=== PATIENT | female | born 2005 | race Caucasian/White ===

== ENCOUNTER 2023-12-13 16:52 | Inpatient (IN) | payer OTHER, SELFPAY ==
[2023-12-13] VITALS (14 sets, daily range): BP systolic 98–135; BP diastolic 50–83; PULSE 67–94; TEMP 36.8
[2023-12-13] MEDS: DINOPROSTONE 10 MG VAG INSERT.ER VAGINAL (18:24)
[2023-12-13 18:46] LABS: Hematocrit 34.1 % (36.0-48.0); Hemoglobin 11.3 g/dL (12.0-16.0); Mean Corpuscular HGB Conc 33.1 g/dL (29.9-35.2); Mean Corpuscular Hemoglobin 28.2 pg (26.7-34.0); Platelet Count 194 10^3/uL (150-450); Red Blood Count 4.01 10^6/uL (4.20-5.40); Red Cell Distribution Width 13.4 % (11.0-15.0); White Blood Count 13.7 10^3/uL (4.0-11.0)
[2023-12-13 19:00] LABS: Amphetamine Screen Urine NEGATIVE (NEGATIVE); Barbiturates Screen Urine NEGATIVE (NEGATIVE); Benzodiazepines Screen Urine NEGATIVE (NEGATIVE); Buprenorphine Screen Urine NEGATIVE (NEGATIVE); Cannabinoid Screen Urine NEGATIVE (NEGATIVE); Cocaine Screen Urine NEGATIVE (NEGATIVE); Methadone Screen Urine NEGATIVE (NEGATIVE); Methamphetamines Screen Urine NEGATIVE (NEGATIVE); Opiate Screen Urine NEGATIVE (NEGATIVE); Oxycodone Screen Urine NEGATIVE (NEGATIVE); Phencyclidine Screen Urine NEGATIVE (NEGATIVE); Tricyclic Antidepressant Urine NEGATIVE (NEGATIVE)
[2023-12-14] VITALS (52 sets, daily range): BP systolic 98–223; BP diastolic 50–121; PULSE 68–129; TEMP 36.6–37.1
--- NOTE | 2023-12-14 08:29 | PM.OBHP ---
OB - H&P: HPI History of Present Illness Chief complaint: PARTNERS, INDUCTION : 1 Para: 0 Gestational age based on last menstrual period: 40.5 History of Present Dating criteria: LMP confirmed by 1st trimester US Ultrasounds: normal 1st trimester US Medical complications OB: none Labs Blood type: B (+) positive Rubella: immune RPR/VDLR: nonreactive GBS status: negative HBsAG: negative Review of Systems ROS Status of ROS: 10 or more systems reviewed and unremarkable except as noted in history and below Meds Home Medications and Allergies Allergies Allergy/AdvReac Type Severity Reaction Status Date / Time No Known Drug Allergies Allergy Verified 12/14/23 05:45 Exam Constitutional Vital Signs, click to edit/add: Last Vital Signs Temp 98.3 F 12/13/23 17:10 Pulse 83 12/14/23 08:20 Resp 16 12/13/23 17:10 BP 136/88 12/14/23 08:20 Common normals: no apparent distress and oriented x3 General appearance: cooperative Orientation/consciousness: Yes awake, Yes oriented to person, Yes oriented to place and Yes oriented to time HENMT Common normals: normocephalic Eye Common normals: EOMs intact bilaterally Neck & C-Spine Common normals: full ROM General: normal visual inspection Lymph Lymphatic: no lymphadenopathy noted Chest Common normals: inspection of chest normal Respiratory Common normals: normal respiratory effort, no retractions, no use of accessory muscles, clear to auscultation bilaterally and percussion normal Effort & inspection: able to speak in complete sentences Auscultation: clear to auscultation bilaterally Cardio Common normals: regular rate and regular rhythm Rate: regular rate Rhythm: regular rhythm GI Common normals: Normal to inspection, nondistended, normoactive bowel sounds present, soft to palpation and non-tender Palpation: soft Common normals: no CVA tenderness Back & Pelvis Common normals: no CVA tenderness Extremity Common normals: normal to inspection Neuro Common normals: oriented x3 Sensorium/orientation: awake, alert, oriented to person, oriented to place and oriented to time Psych Common normals: mental status grossly normal, thought process normal, cooperative, affect normal, speech normal, activity/motor behavior normal, denies hallucinations, denies homicidal ideation and denies suicidal ideation Appearance: grossly normal Attitude: calm Results Labs Labs: Short CBC 12/13/23 Range/Units 17:31 WBC 13.7 H (4.0-11.0) 10^3/uL Hgb 11.3 L (12.0-16.0) g/dL Hct 34.1 L (36.0-48.0) % Plt Count 194 (150-450) 10^3/uL OB - A/P Assessment and Plan (1) Term : Plan admit for labor and delivery. patient is 40 weeks 5 days
--- NOTE | 2023-12-14 08:39 | PM.EN ---
Event Note Event Note: 0815 assessment obtained. SVE performed and she is 3+/60/-1. AROM performed with sterile finger cot with return of moderate amount of clear, odorless fluid. heart tones are stable before, during and after rupture of membranes. Patient tolerated procedure well.
[2023-12-14] MEDS: LACTATED RINGER'S SOLUTION 1,000 ML 999 ML IV (11:55)
[2023-12-14] MEDS: ROPIVACAINE HCL/PF 400 MG/200 ML PREMIX 8 MG EPIDURAL (11:56)
[2023-12-14] MEDS: OXYTOCIN/0.9 % SODIUM CHLORIDE 20 UNITS/1,000 ML PLAST..BAG 125 UNIT IV (14:45)
--- NOTE | 2023-12-14 15:18 | PM.OBPRCVD ---
Procedure Intrapartal events: None Induction method: other (cervidil ) Delivery augmentation: rupture of membranes and pitocin Delivery monitor: external FHT and external uterine Route of delivery: Episiotomy Description: none L&D Laceration Description: periurethral - 2nd degree Delivery repair: Vicryl Estimated blood loss (mL): 300 Anesthesia type: Epidural Disposition: no change Delivery date: 12/14/23 Gender: male presentation: vertex cord description: 3 Vessels and Around Body x2 heart rate - 1 minute: 100 bpm or Greater respiratory effort - 1 minute: Spontaneous/Strong Cry muscle tone - 1 minute: Active Movement reflex response - 1 minute: Prompt Response color - 1 minute: Bluish Hands or Feet total score - 1 minute: 9 heart rate - 5 minute: 100 bpm or Greater respiratory effort - 5 minute: Spontaneous/Strong Cry muscle tone - 5 minute: Active Movement reflex response - 5 minute: Prompt Response color - 5 minute: Bluish Hands or Feet total score - 5 minute: 9
[2023-12-14] MEDS: BENZOCAINE/MENTHOL 85 GRAM SPRAY BOTTLE 1 APPLIC TOPICAL (15:46)
[2023-12-14] MEDS: IBUPROFEN 400 MG TABLET 800 MG PO ×2 (15:46→23:31)
[2023-12-14] MEDS: GLYCERIN/WITCH HAZEL PADS 1 PAD TOPICAL (15:47)
[2023-12-15 08:45] VITALS: BP 113/55; PULSE 90; TEMP 36.8
[2023-12-15] MEDS: DOCUSATE SODIUM 100 MG CAPSULE PO (09:19)
[2023-12-15] MEDS: IBUPROFEN 400 MG TABLET 800 MG PO ×2 (09:21→17:16)
--- NOTE | 2023-12-15 13:10 | PM.OBPN ---
OB - PN: Subj Subjective Patient comments: no complaints [place] status: doing well feeding status: exclusively Exam Narrative Exam Narrative: VOICING NO COMPLAINTS Constitutional Vital Signs, click to edit/add: Last Vital Signs Temp 98.1 F 12/14/23 23:37 Pulse 90 12/15/23 08:45 Resp 14 12/14/23 23:45 BP 113/55 12/15/23 08:45 O2 Del Method Room Air 12/14/23 23:45 Documenting provider has reviewed patient's vital signs: yes Common normals: no apparent distress, average body habitus, oriented x3, no limitations, healthy appearing, alert and well nourished General appearance: cooperative and comfortable Orientation/consciousness: Yes oriented to person, Yes oriented to place and Yes oriented to time HENMT Common normals: normocephalic and head/scalp atraumatic Eye Common normals: PERRL Pupil: accommodation reflex normal Neck & C-Spine Common normals: full ROM and supple Respiratory Common normals: normal respiratory effort, no use of accessory muscles and clear to auscultation bilaterally Cardio Common normals: regular rate and regular rhythm GI Common normals: Normal to inspection, nondistended, normoactive bowel sounds present, soft to palpation and non-tender Common normals: no CVA tenderness Back & Pelvis Common normals: no thoracic nor lumbar tenderness Extremity Common normals: normal to inspection, full ROM and no calf tenderness Neuro Common normals: oriented x3, CN's II-XII intact bilaterally, moves all extremities, no focal motor deficits and no sensory deficits noted Sensorium/orientation: awake, alert, oriented to person, oriented to place and oriented to time Motor exam: strength 5/5 throughout Psych Common normals: mental status grossly normal, thought process normal and cooperative OB - PN: A/P Assessment and Plan (1) (spontaneous vaginal delivery): Assessment and Plan: CLINICAL EXAM NONFOCAL, DOING WELL, BREAST FEEDING, AMBULATING, EATING ELIMINATING NORMALLY Plan - Vaginal Delivery day: 1 Plan: routine care Time Spent with Patient Time: Total time spent is greater than 50% in coordination of care (as documented) at patient's floor/unit and/or counseling patient: Total time spent with greater than 50% in coordination of care (as documented) at patient's floor/unit and/or counseling patient: less than 15 minutes
[2023-12-15 17:16] VITALS: BP 112/59; PULSE 81; TEMP 36.9
[2023-12-16] MEDS: IBUPROFEN 400 MG TABLET 800 MG PO ×3 (01:05→17:29)
[2023-12-16] MEDS: DOCUSATE SODIUM 100 MG CAPSULE PO ×2 (01:05→08:24)
[2023-12-16 01:06] VITALS: BP 118/79; PULSE 92; TEMP 36.2
[2023-12-16 07:48] VITALS: BP 122/78; PULSE 84
--- NOTE | 2023-12-16 09:14 | PM.OBPN ---
OB - PN: Subj Subjective Patient comments: no complaints and pain well controlled [place] status: doing well Exam Constitutional Vital Signs, click to edit/add: Last Vital Signs Temp 97.2 F L 12/16/23 01:06 Pulse 84 12/16/23 07:48 Resp 16 12/16/23 07:57 BP 122/78 12/16/23 07:48 O2 Del Method Room Air 12/16/23 07:57 Documenting provider has reviewed patient's vital signs: yes Common normals: no apparent distress Respiratory Common normals: normal respiratory effort and clear to auscultation bilaterally Cardio Common normals: regular rate and regular rhythm GI Common normals: Normal to inspection, nondistended, normoactive bowel sounds present Extremity Common normals: no calf tenderness OB - PN: A/P Assessment and Plan (1) (spontaneous vaginal delivery): Plan - Vaginal Delivery day: 2 Plan: routine care, discharge home and follow up 6 weeks Time Spent with Patient Time: Total time spent is greater than 50% in coordination of care (as documented) at patient's floor/unit and/or counseling patient: Total time spent with greater than 50% in coordination of care (as documented) at patient's floor/unit and/or counseling patient: less than 15 minutes
[2023-12-16 09:31] VITALS: TEMP 36.9
[2023-12-16] MEDS: GLYCERIN/WITCH HAZEL PADS 1 PAD TOPICAL (11:57)
[2023-12-16 17:20] VITALS: TEMP 37.3
[2023-12-16 17:22] VITALS: BP 133/82; PULSE 96
== END 2023-12-16 17:45 | disposition home or self-care (01) | DRG 560 ==
LOC: FBC 16:54
PROVIDERS: Admitting Provider Midwife; PCP Family Medicine; Visit Provider Midwife
DX: O69.82X0 Labor and delivery complicated by other cord entanglement, without compression, not applicable or unspecified (principal); O70.1 Second degree perineal laceration during delivery; Z3A.40 40 weeks gestation of pregnancy; Z37.0 Single live birth
CPT/HCPCS: 36415; 59050; 59410; 80307; 85027; 86850; 86900; 86901; J2795

== ENCOUNTER 2023-12-20 08:06 | Outpatient (OUT) | payer OTHER, SELFPAY ==
--- NOTE | 2023-12-20 13:47 | PC.NURSE ---
Tim Link and 6 day old Tim arrive for follow up. Parents states Things are getting better Fariba states feels well, no concerns voiced VSS and assessment WNL She states that has gone to pumping as latching became frustrating for her and the baby, so decided to pump. Reviewed pro's and con's of pumping, given sample schedule of exclusive pumping. States things got hard when my milk was coming in . Reviewed common hurdles for new mothers and . Verbalized desire to try baby back at the breast. Baby Tim with VSS and assessment WNL. Baby is eating every 2-3 hours, taking 1.5 oz of pumped milk. Sometimes needing to finish 2 oz. Parents report 7-8 wet diapers and 7-8 yellow seedy stool diapers in last 24 hours. Infant to breast in cross cradle position, offered latch, baby interested, rooting seeking but not latching. Nipple shield discussed and mom agreeable. Infant with immediate latch, audible swallows with sustained sucking. feeds for 17 minutes, released latch. Infant seeks to re latch, shield removed and baby latches without shield. Mom states is more comfortable and excited to continue to directly breastfeed. Will return 12/24/2023 for further support. Family leaves ambulatory.
== END 2023-12-20 13:48 | disposition home or self-care (01) ==
LOC: FBCO 08:08
PROVIDERS: PCP Family Medicine; Visit Provider Midwife
DX: Z39.1 Encounter for care and examination of lactating mother (principal)